=== PATIENT | male | born 2005 | race Caucasian/White ===

== ENCOUNTER 2025-06-18 04:10 | Emergency (ER) | payer SELFPAY ==
--- NOTE | 2025-06-18 04:14 | ED.GENADUL_ITS ---
Discharge Plan Disposition Patient Disposition: Home Condition: Good Discharge Details Clinical Impression: Right foot sprain Primary Care Provider: Unknown,Unknown ED Provider: Je Rolle Home Meds and New Rx's Prescriptions: No Action No Known Home Meds Discharge Instructions Instructions: Foot Sprain ED Additional Instructions: You were seen in the ED for right foot and ankle pain after an injury. X-rays are negative for fracture. Would take ibuprofen as needed for pain. Ice on and off over the next couple of days and keep elevated when possible. Weight-bear as tolerated. Follow-up with primary care 1 to 2 weeks if not improving. Return to ED for severe worsening pain, numbness or weakness in the foot, other concerns. HPI General Mode of arrival: ambulatory . Date/Time Provider Initiated Documentation: 06/18/25 04:13 . Limitations to Documentation: no limitations . Information obtained by: patient and RN notes reviewed . HPI Narrative: Patient presents to ED with right foot and ankle pain after a skateboarding accident yesterday. Patient has taken NSAID for pain. He is able to ambulate but with a limp. Pain seems to run from the midfoot up into the ankle. Denies any numbness or weakness. Did sustain a few abrasions to the top of the foot. Denies injury elsewhere. Related Data Home Medications ?Medication ?Instructions ?Recorded ?Confirmed Unknown [No Known Home Meds] 06/18/25 0 06/18/25 Allergies Allergy/AdvReac Type Severity Reaction Status Date / Time No Known Allergies Allergy Unverified 06/18/25 04:20 Exam Narrative Exam Narrative: Const: WDWN male in NAD. VS per triage. HEENT: NC/AT. Normal facial exam. Neck: Supple. Trachea midline. Lungs: Normal respiratory effort. Neuro: A+O x 3. Normal speech, mentation. Cranial nerves II - XII grossly intact. No gross motor or sensory deficit. Ext: Right foot/ankle with tenderness both malleoli and midfoot area. Abrasion s to the dorsal part of the foot. Normal sensation, strength, pulses. Medical Decision Making Patient presenting with right foot and ankle injury. X-rays are ordered. X-ray of the patient's foot and ankle are negative for acute fracture or dislocation per my read as well as preliminary radiology read. Patient declines walking boot. Recommend weight-bear as tolerated, ice, ibuprofen and follow-up with PCP 1 to 2 weeks if not improving. Return precautions provided. Imaging Data Radiologic Study: Attestation: I personally reviewed and interpreted this imaging study as follows: Imaging: X-Ray My impression: see MDM PFS All Active Problems (Updated 06/18/25 @ 05:38 by Je Rolle MD) Right foot sprain (Acute) Social History Smoking/Tobacco Use Status: Current every day Tobacco Type: e-cigarettes Smoking risk assessment performed?: Yes Alcohol Intake: current Alcohol Intake frequency: a few times a month Drug use: Socially Substance use type: marijuana
[2025-06-18 04:17] VITALS: BP 170/100; PULSE 115; RESP 18; TEMP 36.9; O2SAT 99
--- NOTE | 2025-06-18 04:30 | DI.RAD_ITS ---
Exam(s) XR ANKLE RT COMPLETE XR FOOT RT COMPLETE EXAM: XR ANKLE RT COMPLETE and XR foot RT complete CLINICAL HISTORY: trauma. TECHNIQUE: 2D digital imaging was performed of the right foot and ankle. Six images were obtained. AP, lateral and oblique views were obtained. COMPARISON: There are no priors for comparison. FINDINGS: BONES: No acute fracture is present. No bony destructive lesion is seen. JOINTS: The ankle mortise is normally aligned. SOFT TISSUE: Normal. IMPRESSION: 1. There is no acute fracture or dislocation in the right foot or ankle. 2. The preliminary [facility] report was reviewed. DATA REPOSITORY: RADIATION DOSE DELIVERED:
--- NOTE | 2025-06-18 05:27 | DI.[facility]_ITS ---
PROCEDURE INFORMATION: Exam: XR Right Foot Exam date and time: 06/18/2025 4:59 AM Age: 19 years old Clinical indication: Injury or trauma; Blunt trauma; Ankle and foot; Right; Injury date: 06/17/25; Injury details: Fall, pain TECHNIQUE: Imaging protocol: Radiologic exam of the right foot. Views: 3 or more views. COMPARISON: CR XR ANKLE RT COMPLETE 06/18/2025 4:56 AM FINDINGS: Bones/joints: Normal. Soft tissues: Normal. IMPRESSION: No acute findings. Dictated and Authenticated by: Farida Francis MD. Orderin Aquilino Wooten MD
--- NOTE | 2025-06-18 05:28 | DI.[facility]_ITS ---
PROCEDURE INFORMATION: Exam: XR Right Ankle Exam date and time: 06/18/2025 4:56 AM Age: 19 years old Clinical indication: Injury or trauma; Blunt trauma; Foot; Right; Injury date: 06/17/25; Injury details: Fall. Pain TECHNIQUE: Imaging protocol: Radiologic exam of the right ankle. Views: 3 or more views. COMPARISON: No relevant prior studies available. FINDINGS: Bones/joints: Normal. Soft tissues: Normal. IMPRESSION: No acute findings. Dictated and Authenticated by: Farida Francis MD. Orderin Aquilino Wooten MD
[2025-06-18 05:54] VITALS: BP 140/70; PULSE 90; RESP 16; O2SAT 99
== END 2025-06-18 05:55 | disposition home or self-care (01) ==
LOC: ER 06:02
PROVIDERS: Emergency Provider Emergency Medicine
DX: S93.601A Unspecified sprain of right foot, initial encounter (principal); Y93.51 Activity, roller skating (inline) and skateboarding
CPT/HCPCS: 99283 ×2; 73610; 73630